=== PATIENT | female | born 1950 | race Asian ===

== ENCOUNTER → 2019-11-01 | Outpatient (CLI) | payer MEDICARE, MEDICAID ==
[~2019-11-01] MED LIST: ASPI-1198 PO; CLON0.1T83 PO; FURO20 PO; HUMOLOG INSULIN SQ; INSU100C4 SQ; ISOS30TA6 PO; LEVO125 PO; LISI-662 PO; METO50 PO; OMEP20 PO; POTA8TAB4 PO; SIMV-260 PO
== END | disposition home or self-care (01) ==
LOC: RADPV 12:32
PROVIDERS: ATTEND Internal Medicine Nephrology
DX: E11.22 Type 2 diabetes mellitus with diabetic chronic kidney disease (principal); N18.3 Chronic kidney disease, stage 3 (moderate); N28.1 Cyst of kidney, acquired
CPT/HCPCS: 76770